=== PATIENT | male | born 1940 | race Caucasian/White ===

== ENCOUNTER 2021-07-15 11:06 | Inpatient (IN) | payer MEDICARE ==
[~2021-07-15] VITALS: Ht 177.8 cm; Wt 93.2 kg
[2021-07-16] MEDS ORDERED: NORVASC2.5 MG PO (15:10)
[2021-07-16] MEDS ORDERED: METOPROLOL SUCC25 MG PO (15:10)
[2021-07-16] MEDS ORDERED: ASPIRIN81 MG PO (15:11)
[2021-07-16] MEDS ORDERED: CRESTOR20 MG PO (15:11)
[2021-07-16] MEDS ORDERED: ACYCLOVIR400 MG PO (15:11)
[2021-07-16] MEDS ORDERED: FLOMAX0.4 MG PO (15:11)
--- NOTE | 2021-07-16 15:31 | NUR ---
DOS:07-29-21 STEPS: 1 STEP INTO THE HOME SHOWER: STEP OVER SHOWER AND DOES NOT HAVE A SHOWER CHAIR, BUT DOES HAVE PLASTIC LAWNCHAIR THAT WOULD WORK WALKER: HAS FWW AND WAS ASKE TO BRING IN IT IN ON THE DAY OF SURGERY TOLIET: SHORT ONE AND WILL GET RISER IF NEEDED APPOINTMENT AND PHYSICAL THERAPY: HIS WILL BRING HIM TO APPOINTMENTS, BUT PHYSICAL THERAPY PATIENT WAS WOUNDERING IF HOME HEALTH COULD COME TO THE HOUSE DUE TO THEY [place] [facility] [address] [facility].
[2021-07-29] MEDS ORDERED: XARELTO10 MG PO (09:11)
[2021-07-29] MEDS ORDERED: OXYCODONE HCL5 MG PO (09:11)
[2021-07-29] MEDS ORDERED: GABAPENTIN300 MG PO (09:11)
[2021-07-29] MEDS ORDERED: SENNA LAX8.6 MG PO (09:11)
[2021-07-29] MEDS ORDERED: CELECOXIB200 MG PO (09:11)
--- NOTE | 2021-07-29 10:05 | NUR ---
1005-PATIENT BACK TO ROOM FROM PACU ON RA. RECEIVED REPORT FROM ESEQUIEL MONTOYA. PATIENT IS DROWSY. DENIES PAIN AND NAUSEA. SMALL AMOUNT OF DRAINAGE NOTED. CRYO CUFF IN PLACE. RESP EVEN AND UNLABORED. BED SHEETS AND GOWN WET. CRYO CUFF LEAKING WATER AND INCONTINENCE NOTED. 1015-BED SHEETS AND GOWN CHANGED WITH ANOTHER RN ASSIST. WARM BLANKETS PROVIDED. CALL LIGHT WITHIN REACH.
--- NOTE | 2021-07-29 10:10 | NUR ---
07/29/21 1010 Laura Myrick 0915 PT ARRIVED IN PACU SLEEPY. UNABLE TO ASSESS SPINAL AT THIS TIME. 0930 PT AWAKE. PELVIS XRAY DONE. NO C/O'S. 0944 TORADOL 15MG GIVE IVP PER DR ORDERS. NO C/O'S. 100O TO DS. REPORT GIVEN TO JAN.
--- NOTE | 2021-07-29 10:40 | NUR ---
PATIENT HAD SOME INCONTINENCE IN BED, PROVIDED BLADDER SCAN, NOTED >[address] ROSADO WHO VERBALIZED TO STRAIGHT CATH PATIENT. STERILE PREP PROVIDED, INSERTED LOGAN CATH WITH EASE. PATIENT TOLERATED WELL, REPORTED NO FEELING. COLLECTED 600 ML OF BRIGHT ORANGE URINE. PROVIDED CALL LIGHT AND WARM BLANKET, NO OTHER NEEDS AT THIS TIME.
--- NOTE | 2021-07-29 12:08 | NUR ---
PATIENT IS DROWSY AND LAYING IN BED. VSS. RESP EVEN AND UNLABORED. DRESSING HAS A SMALL AMOUNT OF RED DRAINAGE. CRYO CUFF IN PLACE. DENIES PAIN AND NAUSEA. ORDERED LUNCH. PEDIAL PULSE ON LEFT FOOT IS FAINT. CALL LIGHT WITHIN REACH. VITOR HUGGER RUNNING. TAKING SIPS OF WATER.
--- NOTE | 2021-07-29 13:10 | NUR ---
PATIENT LAYING IN BED WITH EYES CLOSED. RESP EVEN AND UNLABORED. DENIES PAIN AND NAUSEA. SPINAL HAS RESOLVED. PEDIAL PULSE ON LEFT FOOT FAINT. DRESSING HAS A SAMLL AMOUNT OF DRAINAGE. CRYO CUFF IN PLACE. CALL LIGHT TEJINDER MORRISON. PATIENT READY TO GO TO [facility]. 1325-REPORT GIVEN TO MED SURG NURSE. BED PLUGGED IN, BED RAILS UP. PATIENT JUST NOT EATING HIS SANDWICH. DENIES PAIN. CRYO CUFF IN PLACE AND PLUGGED IN.
--- NOTE | 2021-07-29 13:28 | NUR ---
PATIENT TO ROOM 109, BEDSIDE REPORT RECEIVED. LEFT HIP DRESSING IN INTACT WITH TWO SMALL OUTLINED AREAS. PATIENT IS SITTING UP IN BED TO EAT A SANDWICH, DENIES ANY PAIN. PATIENT IS ON ROOM AIR, POST OP VITALS ARE COMPLETE. BILATERAL CHANELL HOSE AND FOOT PUMPS ARE ON. LEFT CRYO CUFF IS ON WITH FABRIC BETWEEN PATIENT AND CUFF. PATIENT ORIENTED TO CALL LIGHT SYSTEM. PATIENT SAYS, "I DON'T QUIT HAVE TO PEE YET."
--- NOTE | 2021-07-29 13:50 | NUR ---
PT RESTING IN BED. PT ON ROOM AIR, LUNG SOUNDS CLEAR, DENIES SOB. BOWEL TONES ACTIVE, DENIES NAUSEA, TOLERATED SANDWICH WELL. LEFT HIP WITH DRESSING, SMALL AMOUNT OF SANGUINOUS DRAINAGE OUTLINED, CRYOCUFF IN PLACE. PT WITH SCDS AND CHANELL MMIS. CMS INTACT, DENIES NUMBNESS. PT HAS YET TO VOID, BLADDER SCAN FOR 217. PT DENIES OTHER NEEDS AT THIS TIME.
--- NOTE | 2021-07-29 14:35 | NUR ---
PT IN BED, IN ROOM. DENIES PAIN ATT BUT PHYS THERAPY IN ROOM TO WORK WITH PT.
--- NOTE | 2021-07-29 15:03 | OR ---
[facility] [address] [place], [place] [address] Signed DATE OF OPERATION: 07/29/2021 SURGEON: Madelyn Stinson MD PREOPERATIVE DIAGNOSIS: Degenerative joint disease, left hip, severe. POSTOPERATIVE DIAGNOSIS: Degenerative joint disease, left hip, severe. PROCEDURE PERFORMED: Left total hip arthroplasty with Sidney. INTERACTIVE WEB DEVELOPER: CODY Landers. Livier was present and critical for all portions of the procedure ANESTHESIA: Spinal. BLOOD LOSS: 200 mL. IMPLANTS: Carlos Triathlon size 4 stem, 58 mm Trident cup and a +2.5 mm head. BRIEF HISTORY: Irving is an 81-year-old gentleman with pain in his hip and disability. Risks and benefits of operative treatment were discussed with him. He elected to proceed. Once consent was obtained, he was taken to the operating room. After adequate anesthesia, he was placed in the right lateral decubitus position. All downside pressure points were well padded. The right leg and hip were then prepped and draped in a standard sterile fashion from the ribcage distally. The three pins for the Sidney system were placed in the posterior iliac spine through separate stab incisions. The hip was then taken through an anterior lateral approach, carried through skin and subcutaneous tissue. IT band was divided longitudinally. The vastus lateralis was then split along the anterior femur distally and subperiosteally elevated from the tip of the trochanter around to the lesser trochanter. The gluteus medius was split sharply and the capsule was split from the tip of the trochanter all way to the acetabular rim. There was extensive thickening of the superior and posterior capsule and this was partially removed. The capsule was Electronically Signed By: MADELYN STINSON MD 07/29/21 1503 PATIENT NAME: IRVING ELIAS OPERATIVE REPORT DATE OF : 38 REPORT #: [id number] PHYSICIAN: MADELYN STINSON MD PCP: TODD REID MD REPORT IS CONFIDENTIAL AND NOT TO BE RELEASED WITHOUT AUTHORIZATION [facility] [address], [place] [address] Signed then elevated off the anterior acetabular rim. We then attempted to dislocate the hip, we were unable to do so. We then made the femoral neck cut one fingerbreadth above the lesser trochanter and again could not remove the head without extensive traction. We then split the head into four quarters and removed piecemeal. This was done atraumatically. Once this was accomplished, any bone was removed. Periacetabular soft tissue was cleared. Prior to this, we did place in the proximal femur and the leg length was registered with the computer. We then took the fine anatomic points of the acetabulum, registered with the computer. The robot was then brought in and we reamed at 39 degrees of abduction and 28 degrees of anteversion. The cup was then impacted until it was well seated. A single 6.5 screw was placed posterior superiorly. The liner was then impacted. There were some anterior osteophytes were then removed using an osteotome. Once this was completed, we turned our attention to the femur. This was opened using the [employer] cutter followed by the Lilia awdaphne. It was then reamed with a lateralize reamer and sequentially broached up to 4 which was quite firm in its positioning. We placed a 2.5 trial head and reduced it and had excellent leg lengths, good motion with about 30 of internal, 40 of external rotation. We then dislocated and removed the trials and placed the final stem until it was well packed and seated to the same level as the broach. The 2.5 head was then impacted. Again, the hip was reduced and the range of motion was found to be again symmetric. The wound was copiously irrigated with normal saline. A total of 3 L under pulse lavage was used. We did soak with IrriSept in the midportion. Periarticular soft tissue was injected with 100 mL of ropivacaine and Toradol mixture. The capsule was then closed using #1 Vicryl. The vastus and IT band layers were closed independently using #2 StrataFix, 0-Quill for the subcutaneous tissue and 3-0 StrataFix for the skin. Steri-Strips were applied. The wound was dressed with an Aquacel dressing and he was awakened and taken to the recovery room in satisfactory condition. All sponge, needle, and instrument counts were correct. Madelyn Stinson MD BA/MODL /[id number] Electronically Signed By: MADELYN STINSON MD 07/29/21 1503 PATIENT NAME: IRVING ELIAS OPERATIVE REPORT DATE OF : 38 REPORT #: [id number] PHYSICIAN: MADELYN STINSON MD PCP: TODD REID MD REPORT IS CONFIDENTIAL AND NOT TO BE RELEASED WITHOUT AUTHORIZATION [facility] [address] [facility] [place], [place] [address] Signed Copies: ~ Electronically Signed By: MADELYN STINSON MD 07/29/21 1503 PATIENT NAME: CURTIRVING TAMANNA OPERATIVE REPORT DATE OF : 38 REPORT #: [id number] PHYSICIAN: MADELYN STINSON MD PCP: TODD REID MD REPORT IS CONFIDENTIAL AND NOT TO BE RELEASED WITHOUT AUTHORIZATION
--- NOTE | 2021-07-29 15:34 | NUR ---
PT WALKING IN NADIA LWITH P.T. PT VOIDED 225 OF ORANGE URINE.
--- NOTE | 2021-07-29 18:38 | NUR ---
PATIENT IN BED RESTING AT THIS TIME. VITALS AND I&O'S CHARTED. CRYO FILLED. CALL LIGHT IN REACH. NO FURTHER NEEDS AT THIS TIME.
--- NOTE | 2021-07-29 19:53 | NUR ---
RECEIVED REPORT FROM DAY SHIFT RN. PATIENT IS RESTING IN BED. SCDS AND CRYO IN USE. PATIENT DENIES ANY PAIN. CALL LIGHT IN REACH.
--- NOTE | 2021-07-29 22:19 | NUR ---
PATIENT ASSESMENT COMPLETED. VITALS TAKEN AND RECORDED. URINAL EMPTIED. INTAKE AND OUTPUT RECORDED. PATIENT RATES PAIN AT A 2/10. SCHEDULED PAIN MEDICATION GIVEN PER ORDER. PATIENT DENIES THE NEED FOR ADDITIONAL PAIN MEDICATION AT THIS TIME. SCHEDULED MEDICATION GIVEN PER ORDER. PATIENTS IV SL AND FLUSHES WELL. CRYO REFILLED WITH ICE AND APPLIED TO LEFT HIP. LEFT HIP DRESSING IN PLACE DRAINAGE NOTED AND NO CHANGE FROM PREVIOUS SHIFTS OUTLINE. PATIENT HAS SCDS IN USE. PATIENT IS ON RA, AND CPOX IN USE. PATIENTS ICE WATER REFILLED. NO FURTHER NEEDS NOTED. CALL LIGHT IN REACH.
--- NOTE | 2021-07-30 00:17 | NUR ---
PATIENT IS RESTING IN BED WITH EYES CLOSED, CPOX READINGS ARE WNL. CALL LIGHT IN REACH.
--- NOTE | 2021-07-30 03:00 | NUR ---
VITALS TAKEN AND RECORDED. INTAKE AND OUTPUT RECORDED. PATIENT REPORTS PAIN AT A 1/10 IN HIS LEFT HIP. PATIENT GIVEN SHCEDULED PAIN MEDICATION PER ORDER. PATIENT DENIES THE NEED FOR ADDITIONAL PAIN MEDICATION AT THIS TIME. PATIENTS CRYO HAS SUFFICIENT ICE AND APPLIED TO LEFT HIP. SCDS IN USE. NO FURTHER NEEDS NOTED. CALL LIGHT IN REACH.
--- NOTE | 2021-07-30 06:48 | NUR ---
PATIENTS VITALS TAKEN AND RECORDED. INTAKE AND OUTPUT RECORDED. PATIENT DENIES ANY PAIN. SCHEDULED MEDICATIONS GIVEN PER ORDER. PATIENT GIVEN FERSH ICE WATER. CRYO REFILLED WITH ICE AND APPLIED TO LEFT HIP. NO NEW DRAINAGE ON DRESSING ON LEFT HIP. IV FLUSHED AND SL PER ORDER. SCDS IN USE. PATIENT IS ON RA. AAOX4. PATIENT DENIES ANY NEEDS. CALL LIGHT IN REACH.
--- NOTE | 2021-07-30 07:30 | NUR ---
Report received from Tesha MONTOYA. Dr Stinson at bedside to assess patient, reviewed POC with pt who is agreeable. Pt states no pain or needs at this time, cryo cuff in place. Will continue plan of care. Call light in reach
--- NOTE | 2021-07-30 08:50 | NUR ---
Pt returns from imaging, 1PA to transfer to bed. Dressing to L hip visualized and C/D/I. Pt states no pain at this time, breakfast at bedside. Call light in reach
--- NOTE | 2021-07-30 09:27 | NUR ---
Scheduled medications administered, assessment complete. Pt resting in bed, states no pain, dressing C/D/I, cryo cuff in place, teds and SCDs in place. CMS intact. Pt states no needs, call light in reach.
--- NOTE | 2021-07-30 09:29 | NUR ---
PATIENT IN BED RESTING AT THIS TIME. VITALS AND I&O'S CHARTED. CRYO FILLED. CALL LIGHT IN REACH. NO FURTHER NEEDS AT THIS TIME.
--- NOTE | 2021-07-30 10:40 | NUR ---
Scheduled tramadol administered, pt finished working with physical therapy, back to bed, cryo in place, pt states having pain with ambulation, relief with rest. No needs currently, call light in reach.
--- NOTE | 2021-07-30 11:30 | NUR ---
Patient working with physical therapy.
--- NOTE | 2021-07-30 11:30 | NUR ---
Spoke with Irving. He states he was unable to dc due to snow and road closures. States his will drive him. Updated the roads have opened. He called his and she states she would prefer he stay tonight as the roads remain snowy. Pt denies needs has a walker and cooler for his hip. Plans on dc tomorrow.
--- NOTE | 2021-07-30 13:45 | NUR ---
Rounded on patient who is working with physical therapy. No needs from this RN at this time.
--- NOTE | 2021-07-30 14:30 | NUR ---
Assessment complete, pt resting in bed with eyes closed, even and unlabored RR. Awakens to voice. States no pain or needs. Lunch tray cleared, urinal emptied. Pt agreeable to plan of care to stay inpatient overnight. No further needs.
--- NOTE | 2021-07-30 15:08 | NUR ---
PARVIN IS IN BED/ I &O CHARTED VIAS CHARTED. CALL LIGHT WITHIN REACH. NO FURTHER TASKS AT THIS TIME.
--- NOTE | 2021-07-30 16:35 | NUR ---
This RN notified of increased temperature, tylenol given at 1430. Reassessed, pt has temperature of 100.4. I.S. given and instructed, pt demonstrates learning. Dr. Stinson notified. Pt having no symptoms. forest biometrics professor notified. Will continue scheduled medications and monitoring.
--- NOTE | 2021-07-30 18:08 | NUR ---
PARVIN IS IN BED. ATE 100% OF DINNER. CHANGED INTO NEW GOWN. VITALS AND I & O CHARTED. CALL LIGHT WITHIN REACH. NO FURTHER TASKS AT THIS TIME
--- NOTE | 2021-07-30 18:48 | NUR ---
Pt had no pain this shift. A+O, Lungs clear, bowel tones active although no BM today. Voiding QS, orange in color. Dressing to L hip C/D/I, louie hose, cryo cuff, SCDs in place. Pt had temperature 100.4, tylenol administered, I.S. used, Dr Stinson notified. Pt on room air, calls appropriately.
--- NOTE | 2021-07-30 19:57 | NUR ---
RECEIVED REPORT FROM DAY SHIFT RN. PATIENT IS RESTING IN BED. NO NEEDS NOTED. CALL LIGHT IN REACH.
--- NOTE | 2021-07-30 21:20 | NUR ---
PATIENT ASSESMENT COMPLETED. PATIENTS VITALS TAKEN AND RECORDED. PATIENTS INTAKE AND OUTPUT RECORDED. PATIENT DENIES ANY PAIN. PATIENTS SCHEDULED PAIN MEDICATIONS GIVEN PER ORDER, PATIENT DENIES THE NEED FOR ADDITIONAL PAIN MEDICAITON AT THIS TIME. PATIENTS SCHEDULED MEDICATIONS GIVEN PER ORDER. FRESH ICE WATER PROVIDED. PATIENTS IV FLUSHED AND SL PER ORDER. PATIENTS CRYO REFILLED WITH ICE AND APPLIED TO LEFT HIP. LEFT HIP DRESSING IS C/D/I, AND NO NEW DRAINAGE NOTED. PATIENTS SCDS ARE IN USE. NO FURTHER NEEDS NOTED. CALL LIGHT IN REACH.
--- NOTE | 2021-07-30 23:08 | NUR ---
SCHEDULED MEDICATION GIVEN PER ORDER. PATIENT DENIES ANY PAIN. SCDSIN USE. CRYO HAS SUFFICEINT ICE. NO FURTHER NEEDS NOTED. CALL LIGHT IN REACH.
--- NOTE | 2021-07-31 00:43 | NUR ---
PATIENT IS RESTING IN BED WITH EYES CLOSED, RR 16. CALL LIGHT IN REACH.
--- NOTE | 2021-07-31 02:48 | NUR ---
PATIENT ASSISTED TO THE RESTROOM A SBA W/FWW. PATIENT ABLE TO VOID. PATIENT IS BACK IN BED RESTING. PATIENT TOLERATED AMBULATION WELL. PATIENT HAS SCDSIN USE. CRYO REFILLED WITH ICE AND APPLIED TO LEFT HIP. PATIENT DENIES ANY PAIN. SCEDULED MEDICATION GIVEN PER ORDER. PATIENT DENIES ANY NEEDS CALL LIGHT IN REACH.
--- NOTE | 2021-07-31 06:33 | NUR ---
PATIENT ASSISTED TO THE RESTROOM A 1PA W/FWW. PATIENT ABLE TO VOID. PATIENT IS BACK IN BED RESTING. VITALS TAKEN AND RECORDED. INTAKE AND OUTPUT RECORDED. PATIENTS DENIES ANY PAIN SCHEDULED MEDICATIONS GIVNE PER ORDER. PATIENT PROVIDED WITH FRESH ICE WATER. CRYO REFILLED WITH ICE AND APPLIED TO LEFT HIP. SCDS IN USE. LEFT HIP DRESSING HAS NO NEW DRAINAGE NOTED. NO NEEDS NOTED. CALL LIGHT IN REACH.
--- NOTE | 2021-07-31 07:39 | NUR ---
Report received from Tesha MONTOYA. Pt resting in bed, A+O, states no pain or needs at this time, will continue plan of care
--- NOTE | 2021-07-31 08:23 | NUR ---
Scheduled medications administered and assessment complete. Pt denies pain, N/T, assessment WNL. Dressing to L Hip C/D/I, no drainage noted, CMS intact. Teds, SCDS, cryo cuff in place. Pt states able to void, pt is afebrile. Pt states feels prepared to be discharged. No further needs at this time, call light in reach.
== END 2021-07-31 09:25 | disposition home or self-care (01) | DRG 470 ==
LOC: DSVR 07-29 05:30 → MS 07-29 06:45
PROVIDERS: ADMIT Specialist; ATTEND Specialist
PROC: 8E0Y0CZ Robotic Assisted Procedure of Lower Extremity, Open Approach (ICD-10-PCS; 2021-07-29)
PROC: 8E0YXBZ Computer Assisted Procedure of Lower Extremity (ICD-10-PCS; 2021-07-29)
PROC: 0SRB0JZ Replacement of Left Hip Joint with Synthetic Substitute, Open Approach (ICD-10-PCS; principal; 2021-07-29 06:45)
DX: M16.12 Unilateral primary osteoarthritis, left hip (principal); Z88.8 Allergy status to other drugs, medicaments and biological substances; F40.240 Claustrophobia; Z79.01 Long term (current) use of anticoagulants; Z98.890 Other specified postprocedural states
CPT/HCPCS: 01214; 72170; 73502; 97110; 97116; 97161; 97530; A9270; C1713; C1776; J0690; J1885; J2001; J2250; J2704; J7121